=== PATIENT | female | born 1980 | race Caucasian/White ===

== ENCOUNTER 2021-12-14 21:59 | Emergency (ER) | payer SELFPAY ==
[~2021-12-14] VITALS: Ht 170.2 cm; Wt 59.0 kg
[2021-12-14] MEDS ORDERED: PHENYTOIN 100 MG CAPER PO ONE (22:30)
--- NOTE | 2021-12-15 01:11 | NUR ---
Patient discharged with v/s stable. Written and verbal after care instructions given and explained. Patient verbalized understanding. Ambulatory with steady gait. All questions addressed prior to discharge. Advised to follow up with PMD.
== END 2021-12-15 01:02 | disposition home or self-care (01) ==
LOC: MED 21:59
DX: R56.9 Unspecified convulsions (principal)
CPT/HCPCS: 99283